=== PATIENT | female | born 1995 | race Caucasian/White ===

== ENCOUNTER 2016-11-16 18:07 | Emergency (ER) | payer OTHER ==
[~2016-11-16] VITALS: Ht 160 cm; Wt 49.0 kg
[2016-11-16 18:19] VITALS: BP 120/81; PULSE 87; RESP 15; TEMP 98.5; O2SAT 100
--- NOTE | 2016-11-16 19:51 | PD ---
HPI Chief Complaint: Respiratory Symptoms Time Seen by Provider: 19:29 Travel History International Travel<30 days: No Contact w/Intl Traveler<30days: No Traveled to known affect area: No History of Present Illness HPI 21-year-old white female presents emergency Department with complaints of pleuritic left-sided chest pain. She states that she has pain from around her left scapula which radiates through her chest up into her left clavicle. Symptoms are worse when she walks or takes a deep breath. She states that these symptoms have been present since today. She does report having cold symptoms earlier this past week. This has included slight congestion, runny nose, sneezing and cough. She denies any fever chills. No ear pain or sore throat. No shortness of breath or wheezing. No nausea vomiting. No abdominal pain or diarrhea. No urinary symptoms. She denies tobacco. She denies control. She denies any calf swelling or pain. No sedentary activities. No recent travel. PFSH Past Medical History Medical History: Denies Significant Hx Tetanus Vaccination: < 5 Years ?: Not Past Surgical History Surgical History: No Previous Surgery Social History Alcohol Use: Yes Tobacco Use: No Substance Use: No Allergies-Medications (Allergen,Severity, Reaction): Coded Allergies: Sulfa (Sulfonamide Antibiotics) (Verified Allergy, Intermediate, ITCHY, ) Reported Meds & Prescriptions Reported Meds & Active Scripts Active Diclofenac Sodium DR (Diclofenac Sodium) 75 Mg Tabdr 75 Mg PO BID Review of Systems Except as stated in HPI: all other systems reviewed are Neg Physical Exam Narrative GENERAL: Well-developed, well-nourished in no apparent distress. Nontoxic appearing. HEAD: Normocephalic, atraumatic. EYES: Pupils equal round and reactive. Extraocular motions intact. No scleral icterus. No injection or drainage. ENT: Nose clear. Throat without erythema, tonsillar hypertrophy or exudate. Uvula midline. Airway patent. NECK: Trachea midline. Supple, nontender, moves head freely. No central bony tenderness or spasm. CARDIOVASCULAR: Regular rate and rhythm without murmurs, gallops, or rubs. RESPIRATORY: Clear to auscultation. Breath sounds equal bilaterally. No wheezes , rales, or rhonchi. GASTROINTESTINAL: Abdomen soft, non-tender, nondistended. No hepato-splenomegaly , or palpable masses. No guarding. EXTREMITIES: No clubbing, cyanosis, or edema. No joint tenderness. No cords. No Homans sign. BACK: Nontender without deformity. No flank tenderness. NEUROLOGICAL: Awake, alert and oriented x 3 .Cranial nerves grossly intact. Motor and sensory grossly within normal limits. Normal speech. Data Data Last Documented VS Vital Signs Date Time Temp Pulse Resp B/P (MAP) Pulse Ox O2 Delivery O2 Flow Rate FiO2 11/16/16 18:19 98.5 87 15 120/81 (94) 100 Orders Orders D-Dimer (11/16/16 19:35) Chest, Single Ap (11/16/16 19:35) Ibuprofen (Motrin) (11/16/16 20:45) Acetamin-Hydrocod 325-5 Mg ([place] 5-325 (11/16/16 20:45) Ed Discharge Order (11/16/16 20:40) Labs Laboratory Tests Test 11/16/16 19:49 D-Dimer Quantitative (PE/DVT) LESS THAN 0.19 MG/L FEU [facility] Medical Decision Making Medical Screen Exam Complete: Yes Emergency Medical Condition: Yes Medical Record Reviewed: Yes Interpretation(s) Laboratory Tests Test 11/16/16 19:49 D-Dimer Quantitative (PE/DVT) LESS THAN 0.19 MG/L FEU Chest x-ray: Negative for pneumothorax. No acute pulmonary process. Chest wall cavity is normal. D-dimer: Negative Differential Diagnosis Differential diagnoses: URI, pleurisy, chest wall pain, PE Narrative Course Patient's given Motrin 600 mg and one Lortab 5 a grams by mouth. This is chest wall pain. Laboratory testing are negative for acute process and D. Diagnosis Primary Impression: Chest wall pain Patient Instructions: Narcotic given in the ED, General Instructions Departure Forms: Tests/Procedures, Work Release Special Instructions: No work 2 days. Additional Instructions: Rest. Deep breaths every half hour. Diclofenac. Follow-up with a medical doctor in one week. Return to the ER if any problems. Med/Other Pt SpecificInfo: Prescription(s) given Scripts Diclofenac Sodium DR (Diclofenac Sodium DR) 75 Mg Tabdr 75 MG PO BID, #20 TAB 0 Refills Prov: Sunny Michaels MD 11/16/16 Disposition: 01 DISCHARGE HOME Condition: Stable Ovi Fregoso Nov 16, 2016 19:51
--- NOTE | 2016-11-16 20:39 | RADRPT ---
EXAM DATE/TIME: 11/16/2016 19:49 [facility] COMPARISON: No previous studies available for comparison. INDICATIONS : Chest pain MEDICAL HISTORY : None. SURGICAL HISTORY : None. ENCOUNTER: Initial ACUITY: 1 day PAIN SCORE: 2/10 LOCATION: chest FINDINGS: A single view of the chest demonstrates the lungs to be symmetrically aerated without evidence of mas s, infiltrate or effusion. The cardiomediastinal contours are unremarkable. Osseous structures are intact. CONCLUSION: No acute disease. Ovi Clark MD on November 16, 2016 at 20:37 Board Certified Radiologist. This report was verified electronically.
[2016-11-16] MEDS ORDERED: DICL75TA PO (20:40)
[2016-11-16] MEDS ORDERED: ACETAMINOPHEN/HYDROcodone 325 MG/5 MG TAB PO ONE (20:45)
[2016-11-16] MEDS ORDERED: IBUPROFEN 600 MG TAB PO ONE (20:45)
== END 2016-11-16 21:02 | disposition home or self-care (01) ==
LOC: NEPD 18:07
DX: R07.89 Other chest pain (principal)
CPT/HCPCS: 71010; 85379; 99284

== ENCOUNTER 2017-08-05 08:36 | Inpatient (IN) ==
[2017-08-05] MEDS ORDERED: Oxytocin 30 Units/500ml Premix 30 UNITS/500 ML BAG IV.SIG ONE ×2 (09:09→15:52)
[2017-08-05] MEDS ORDERED: Naloxone Inj 0.4 MG/ML Vial IV.PUSH PRN (09:09)
[2017-08-05] MEDS ORDERED: Sodium Chlor 0.9% Inj 500 ML IV.SIG ONE (09:09)
[2017-08-05] MEDS ORDERED: fentaNYL Citrate Inj 100 MCG/2 ML Ampul IV.PUSH PRN ×2 (09:09)
[2017-08-05] MEDS ORDERED: Sod Chloride 0.9% Inj 1,000 ML IV.CONT SCH (09:15)
[2017-08-05] MEDS ORDERED: Citric Acid/Sodium Citrate Liq 15 ML UDC PO SCH (09:15)
--- NOTE | 2017-08-05 09:26 | ED ---
Triage/Final Diagnosis - Visit Information Date of evaluation: 08/05/17 Reason for evaluation: threatened labor Comments/Additional reasons for admission: 21-year-old primigravida who reports contractions since 2 AM. She denies leakage of fluid or bleeding. She reports good movement. - Evaluation Baseline heart rate: 140 Variability: Average (6-10) monitor accelerations: Present monitor decelerations: None Cervical dilation (cm): 3 Cervical effacement (%): 80 station: -2 Vital signs: Vital Signs - 24 hr 08/05/17 08:55 Temperature 98.2 F Pulse Rate 82 Respiratory Rate 18 Blood Pressure 116/77 Comments: Assessment: Primigravida in early labor Plan: Admit for labor management.
[2017-08-05] MEDS ORDERED: fentaNYL Citrate Inj 100 MCG/2 ML Ampul EPIDURAL ONE (09:30)
[2017-08-05] MEDS ORDERED: fentaNYL 2MCG-Bupiv 0.125% Epi 150 ML EPIDURAL ONE ×2 (09:30→09:34)
[2017-08-05 09:31] LABS: Baso % (Auto) 0.3 % (0.0-2.0); Eos % (Auto) 0.1 % (0.0-4.0); Hemoglobin 14.4 gm/dL (11.6-15.3); Lymph # (Auto) 1.7 th/mm3 (1.0-4.8); Lymph % (Auto) 10.8 % (9.0-44.0); Mean Corpuscular HGB Conc 33.5 % (32.0-36.0); Mean Corpuscular Hemoglobin 29.2 pg (27.0-34.0); Mean Corpuscular Volume 87.1 fL (80.0-100.0); Mean Platelet Volume 9.3 fL (7.0-11.0); Mono # (Auto) 1.1 th/mm3 (0.0-0.9); Mono % (Auto) 6.8 % (0.0-8.0); Neut # (Auto) 13.3 th/mm3 (1.8-7.7); Platelet Count 244 th/mm3 (150-450); Red Blood Count 4.94 mil/mm3 (4.00-5.30); Red Cell Distribution Width 14.3 % (11.6-17.2); White Blood Count 16.2 th/mm3 (4.0-11.0)
[2017-08-05] MEDS ORDERED: Bupivacaine PF 0.25% Inj 10 ML Vial ONE (09:37)
--- NOTE | 2017-08-05 09:37 | P.HPOB ---
History of Present Illness Primary Care Physician: No Primary Care Physician Contractions Chief Complaint: Contractions History of Present Illness: 21-year-old primigravida at 40 weeks gestation who reports contractions since 2 AM. She denies leakage of fluid or bleeding. She reports good movement. Weeks Gestation:: 40 - Inpatient Certification If this patient has been admitted as an Inpatient: I certify that the inpatient services were ordered in accordance with Medicare regulations governing the order. This includes certification that hospital inpatient services are reasonable and necessary and in the case of services not specified as inpatient-only under 42 CFR 419.22(n), that they are appropriately provided as inpatient services in accordance to with the 2-midnight benchmark under 43 CFR 412.3(e) Estimated Total Length of Stay (Days): 3 Plans for Post Hospital Care: Home Review of Systems All other systems reviewed negative except as stated in HPI PMFSH - Medical / Surgical Hx Neg / Unobtainable Medical Problems Denied: Yes Surgical History: No Previous Surgery - Tobacco History Tobacco Use In Past 30 Days: No Smoking Status: Never smoker Medications and Allergies Active Medications: Active Medications Citric Acid/Sodium Citrate (Sod Citrate/Citric Acid Liq) 30 ml PO [employer]WARE DES[employer] PENDING SALE TO [facility] Stop: 08/09/17 09:14 Fentanyl Citrate (Fentanyl Inj) 50 mcg IV.PUSH Q1H PRN PRN Reason: Pain Scale 3 - 5 Fentanyl Citrate (Fentanyl Inj) 100 mcg IV.PUSH Q1H PRN PRN Reason: PAIN SCALE 6 TO 10 Lactated Ringer's (Lr 1000 Ml Inj) 1,000 mls @ 125 mls/hr IV.CONT .Q8H SUSANA Lactated Ringer's (Lr 1000 Ml Inj) 3,000 mls @ 3,000 mls/hr IV.SIG UNSCH ONE Stop: 08/05/17 10:08 Sodium Chloride (Ns Inj) 1,000 mls @ 100 mls/hr IV.CONT .Q10H SUSANA Lidocaine HCl (Xylocaine 1% Inj) 0.1 ml INFILTRATN PRN PRN PRN Reason: For IV start Stop: 08/08/17 09:08 Lidocaine HCl (Xylocaine 1% Inj) 10 ml INFILTRATN PRN PRN PRN Reason: For episiotomy repair Stop: 08/07/17 09:08 Mineral Oil (Muri-Lube Oil) 10 ml TOPICAL PRN PRN PRN Reason: PRN perineal massage Naloxone HCl (Narcan Inj) 0.1 mg IV.PUSH Q2M PRN PRN Reason: for opiate reversal Allergies Allergy/AdvReac Type Severity Reaction Status Date / Time Sulfa (Sulfonamide Allergy Intermediate ITCHY Verified 11/16/16 19:52 Antibiotics) Exam Vital signs: Vital Signs 08/05/17 08:55 Temperature 98.2 F Pulse Rate 82 Respiratory Rate 18 Blood Pressure 116/77 - Constitutional moderate distress - Routine HEENT Exam ENT: Present: dentition normal - Routine Neck Exam Absent: lymphadenopathy, thyromegaly - Routine Respiratory Exam Absent: accessory muscle use, respiratory distress, wheezes - Routine Cardiovascular Exam Present: RRR. Absent: murmur, gallop, rubs - Routine Abdominal Exam Absent: distended, mass - Routine Exam External: Absent: erythema, swelling, vulvar erythema - Routine Extremities Exam Absent: edema, tenderness - Routine Back/Spine/Pelvis Exam Comments: 3 cm 80% effaced, -2 station, vertex - Routine Skin Exam Absent: erythema, rash - Routine Neurological Exam Present: alert, oriented X3, normal reflexes Results - Labs CBC & Chem 7: 08/05/17 09:00 Caprini VTE Risk Assessment Caprini VTE Risk Assessment: No/Low Risk (score <= 1) Caprini Risk Assessment Model: Point Value = 1 Point Value = 2 Point Value = 3 Point Value = 5 Age 41-60 Minor surgery BMI > 25 kg/m2 Swollen legs Varicose veins or History of unexplained or recurrent spontaneous Oral contraceptives or hormone replacement Sepsis (< 1 month) Serious lung disease, including pneumonia (< 1 month) Abnormal pulmonary function Acute myocardial infarction Congestive heart failure (< 1 month) History of inflammatory bowel disease Medical patient at bed rest Age 61-74 Arthroscopic surgery Major open surgery (> 45 min) Laparoscopic surgery (> 45 min) Malignancy Confined to bed (> 72 hours) Immobilizing plaster cast Central venous access Age >= 75 History of VTE Family history of VTE Factor V Leiden Prothrombin [id number] Lupus anticoagulant Anticardiolipin antibodies Elevated serum homocysteine Heparin-induced thrombocytopenia Other congenital or acquired thrombophilia Stroke (< 1 month) Elective arthroplasty Hip, pelvis, or leg fracture Acute spinal cord injury (< 1 month) Prophylaxis Regimen: Total Risk Factor Score Risk Level Prophylaxis Regimen 0-1 Low Early ambulation 2 Moderate Order ONE of the following: *Sequential Compression Device (SCD) *Heparin 5000 units SQ BID 3-4 Higher Order ONE of the following medications: *Heparin 5000 units SQ TID *Enoxaparin/Lovenox 40 mg SQ daily (WT < 150 kg, CrCl > 30 mL/min) *Enoxaparin/Lovenox 30 mg SQ daily (WT < 150 kg, CrCl > 10-29 mL/min) *Enoxaparin/Lovenox 30 mg SQ BID (WT < 150 kg, CrCl > 30 mL/min) AND/OR *Sequential Compression Device (SCD) 5 or more Highest Order ONE of the following medications: *Heparin 5000 units SQ TID (Preferred with Epidurals) *Enoxaparin/Lovenox 40 mg SQ daily (WT < 150 kg, CrCl > 30 mL/min) *Enoxaparin/Lovenox 30 mg SQ daily (WT < 150 kg, CrCl > 10-29 mL/min) *Enoxaparin/Lovenox 30 mg SQ BID (WT < 150 kg, CrCl > 30 mL/min) AND *Sequential Compression Device (SCD) Assessment and Plan - Diagnosis (1) Normal labor Code(s): O80 - Encounter for full-term uncomplicated delivery; Z37.9 - Outcome of delivery, unspecified Status: Acute - Plan Admit for labor management, Dr. Garza has been notified.
[2017-08-05] MEDS ORDERED: Ketorolac Inj 30 MG/ML (IVP) Vial IV.PUSH ONE (12:00)
[2017-08-05] MEDS ORDERED: Phenylephrine/NS 1000 MCG/10ML Syringe IV.PUSH ONE (12:00)
[2017-08-05 12:57] LABS: Amphetamine Urine With Conf Neg (Neg)
[2017-08-05 12:58] LABS: Benzodiazepine Urine With Conf Neg (Neg)
[2017-08-05] MEDS ORDERED: fentaNYL Citrate Inj 100 MCG/2 ML Ampul ONE (14:38)
--- NOTE | 2017-08-05 15:51 | P.OBDELI ---
Procedure Note - Pre Op Diagnosis (1) heart rate non-reassuring affecting management of mother (2) Placental abruption affecting delivery - Post Op Diagnosis (1) heart rate non-reassuring affecting management of mother (2) Placental abruption affecting delivery Performed by: Carol Ann Garza MD Procedure: Primary Low Transverse Section Indication for Delivery: Nonreassuring heart tracing, Other (concern for placental abruption) Informed Consent Obtained: For anesthesia, For procedure Confirmed Correct: Patient, Procedure, Site, Time-out taken Anesthesia: Epidural Medication Prior to Procedure: As documented in eMAR Monitoring During Procedure: Blood pressure monitoring, Pulse oximetry Urinary Catheter: Inserted using sterile technique (previously) Sterile Preparation: With 2% chlorexidine (Hibiclens) Position: Supine with wedge to right side, Supine with safety belt applied - Operative Features Skin Incision: Pfannenstiel Uterine Incision: Low transverse w/knife / scissors Membranes Ruptured: Previously (clear) Presentation: Occiput anterior, Other Status of : Viable, Cord blood, Nursery present Placenta Delivered: Intact, Abnormalities (partial abruption approx 15%), Sent to pathology Estimated blood loss (mL): 500 Procedure Tolerated: Well Maternal Condition: Stable Baby Condition: Stable - : Male Infant Female A Delivery Date: 08/05/17 Infant Delivery Time: 12:09 Weight: 3.84 kg Delivery of Infant: Assisted (vacuum applied x 2) score (1 min): 9 score (5 min): 9
[2017-08-05] MEDS ORDERED: Acetaminophen 325 MG Tablet PO PRN (15:52)
[2017-08-05 15:53] VITALS: TEMP 98
[2017-08-05] MEDS ORDERED: Oxytocin 30 Units/500ml Premix 30 UNITS/500 ML BAG ONE (17:17)
--- NOTE | 2017-08-05 19:11 | P.OP ---
Date of procedure: 08/05/17 Surgeon: Carol Ann Garza MD Operation and Findings: Procedure Note - Pre Op Diagnosis (1) heart rate non-reassuring affecting management of mother (2) Placental abruption affecting delivery - Post Op Diagnosis (1) heart rate non-reassuring affecting management of mother (2) Placental abruption affecting delivery Performed by: Carol Ann Garza MD Procedure: Primary Low Transverse Section Indication for Delivery: Nonreassuring heart tracing, Other (concern for placental abruption)Pt presented in active labor darlene q 2 minutes. She progressed to 5cm dilated 50% effaced. She had a 4 minute deceleration and was noted to have increased vaginal bleeding, approx 150-200ml in bed. She was given terbutaline and heart tones recovered. Reviewed with patient that she was remote from delivery and may be having an abruption as she had increased bleeding. Reviewed that this would compromise blood flow to the baby and could be dangerous for her and baby. Informed Consent Obtained: For anesthesia, For procedure Confirmed Correct: Patient, Procedure, Site, Time-out taken Anesthesia: Epidural Medication Prior to Procedure: As documented in eMAR Monitoring During Procedure: Blood pressure monitoring, Pulse oximetry Urinary Catheter: Inserted using sterile technique (previously) Sterile Preparation: With 2% chlorexidine (Hibiclens) Position: Supine with wedge to right side, Supine with safety belt applied - Operative Features Skin Incision: Pfannenstiel Uterine Incision: Low transverse w/knife / scissors Membranes Ruptured: Previously (clear) Presentation: Occiput anterior, Other Status of : Viable, Cord blood, Nursery present Placenta Delivered: Intact, Abnormalities (partial abruption approx 15%), Sent to pathology Estimated blood loss (mL): 500 IVF 2000ml UOP 100ml Procedure Tolerated: Well Maternal Condition: Stable Baby Condition: Stable - Infant: Male Infant Female A Infant Delivery Date: 08/05/17 Delivery Time: 12:09 Weight: 3.84 kg Delivery of Infant: Assisted (vacuum applied x 2) score (1 min): 9 score (5 min): 9 Complications: none Counts: Correct x 3 Maternal intraoperative findings: normal uterus tubes and ovaries. Placenta with evidence of partial abruption. Sent to pathology Specimens: cord blood, gas, and placenta Dispo: to pacu Procedure in detail: After review of informed consent, pt was taken to the OR where epidural anesthesia was administered w/o complication. She had gomez placed in sterile fashion previously. SCDs to bilateral extremities. Ancef 2 g IV given preincision. Abdomen and perineum were prepped and draped in sterile fashion. A Pfannenstiel skin incision was made with the scalpel and carried down to the underlying layer of fascia with the bovie. The fascia was incised in the midline; this incision was extended bilaterally bluntly. The rectus muscles were from the fascia bluntly. Peritoneum entered bluntly. Bladder blade was inserted. A bladder flap was created with Metzenbaum scissors. A low transverse uterine incision was made with the scalpel and extended bluntly. Copious amounts of amniotic fluid noted. The head was grasped, flexed and brought to the level of the hysterotomy. Fundal pressure was used to attempt delivery of the head, but was unsuccessful. PT did have pain with fundal pressure. She was given nitrous. Vacuum was placed, one pop off noted, second placement and delivery of head was successful. The rest of the body readily followed. Delayed cord clamping performed. Cord blood collected. Baby was handed off to nursery team. IV infusion of pitocin was started immediately after the delivery of the . The placenta was removed with cord traction and uterine massage. Placenta was noted to have a partial abruption, about 15% with adherent clot. The uterine cavity was cleared with moistened laparotomy sponges. The uterus was exteriorized and repaired in two layers with number 1 chromic in a running locked fashion followed by an imbricating layer. The posterior cul de sac was irrigated and suctioned. The uterus was noted to be hemostatic. It was returned to the abdomen. The peritoneum was closed with 2-0 chromic in a running fashion. Subcutaneous tissue was irrigated and hemostasis obtained w the bovie. The subcutaneous tissue was brought together with 2-0 chromic in an interrupted fashion. The skin was closed with 3-0 monocryl in a subcuticular fashion. Steristrips were placed followed by a sterile dressing. PT was sent to pacu in stable condition.
[2017-08-05] MEDS: Ibuprofen 600 MG Tablet PO PRN (20:48)
[2017-08-05] MEDS ORDERED: Oxytocin 30 Units/500ml Premix 30 UNITS/500 ML BAG IV.SIG PRN (20:53)
[2017-08-06 00:11] LABS: Bilirubin,Urine Negative (Negative); Clarity,Urine Clear (Clear); Color,Urine Straw (Yellw/Straw); Glucose,Urine (UA) Negative (Negative); Leukocyte Esterase,Urine Trace (Negative); Nitrite,Urine Negative (Negative); Specific Gravity,Urine 1.006 (1.002-1.035)
[2017-08-06] MEDS: Simethicone 80 MG Chew Tablet PO PRN ×2 (00:46→10:56)
[2017-08-06] MEDS: Ibuprofen 600 MG Tablet PO PRN ×4 (01:05→21:25)
[2017-08-06 05:48] LABS: Baso % (Auto) 0.1 % (0.0-2.0); Eos % (Auto) 0.1 % (0.0-4.0); Hematocrit 36.3 % (35.0-46.0); Lymph # (Auto) 1.3 th/mm3 (1.0-4.8); Lymph % (Auto) 9.3 % (9.0-44.0); Mean Corpuscular HGB Conc 33.1 % (32.0-36.0); Mean Corpuscular Hemoglobin 29.5 pg (27.0-34.0); Mean Platelet Volume 9.7 fL (7.0-11.0); Mono # (Auto) 1.1 th/mm3 (0.0-0.9); Mono % (Auto) 8.4 % (0.0-8.0); Neut % (Auto) 82.1 % (16.0-70.0); Platelet Count 178 th/mm3 (150-450); Red Blood Count 4.08 mil/mm3 (4.00-5.30); Red Cell Distribution Width 14.2 % (11.6-17.2); White Blood Count 13.5 th/mm3 (4.0-11.0)
--- NOTE | 2017-08-06 08:01 | P.PNOB ---
Subjective Post op day: 1 Interval history: doing well, no complaints Objective Vital Signs/I&O: Vital Signs 08/05/17 08:55 08/05/17 10:11 08/05/17 10:16 Temperature 98.2 F Pulse Rate 82 98 H 72 Respiratory Rate 18 20 Blood Pressure 116/77 100/76 107/70 08/05/17 10:25 08/05/17 10:35 08/05/17 11:00 Temperature Pulse Rate 83 79 Respiratory Rate 20 18 Blood Pressure 116/65 133/72 08/05/17 11:25 08/05/17 11:40 08/05/17 12:00 Temperature Pulse Rate 82 100 H Respiratory Rate 16 Blood Pressure 122/60 125/82 08/05/17 12:10 08/05/17 12:40 08/05/17 12:55 Temperature Pulse Rate 92 H 114 H 111 H Respiratory Rate Blood Pressure 116/66 120/63 132/77 08/05/17 13:00 08/05/17 13:10 08/05/17 13:25 Temperature 99.5 F Pulse Rate 116 H 114 H Respiratory Rate 18 Blood Pressure 116/75 128/81 08/05/17 13:40 08/05/17 13:50 08/05/17 13:52 Temperature 98.3 F Pulse Rate 107 H 108 H Respiratory Rate Blood Pressure 120/80 111/69 08/05/17 13:55 08/05/17 14:10 08/05/17 15:50 Temperature 98.0 F Pulse Rate 120 H 120 H 140 H Respiratory Rate 17 Blood Pressure 119/71 105/63 08/05/17 16:00 08/05/17 16:15 08/05/17 16:30 Temperature Pulse Rate 130 H 119 H 121 H Respiratory Rate 16 19 20 Blood Pressure 113/64 108/60 107/56 L 08/05/17 16:45 08/05/17 17:00 08/05/17 17:30 Temperature 98.7 F Pulse Rate 100 H 109 H 102 H Respiratory Rate 15 16 16 Blood Pressure 108/58 L 110/63 113/72 08/05/17 20:49 08/05/17 22:20 08/06/17 00:27 Temperature 98.6 F 98.7 F Pulse Rate 100 H 96 H Respiratory Rate 20 18 17 Blood Pressure 102/58 L 96/62 L 08/06/17 04:00 Temperature 98.7 F Pulse Rate 80 Respiratory Rate 18 Blood Pressure 96/68 L Intake & Output 08/05/17 08/06/17 08/06/17 18:59 06:59 18:59 Weight 64.982 kg Result Diagrams: 08/06/17 05:07 Objective Remarks: GENERAL: Well-nourished, well-developed patient. CARDIOVASCULAR: Regular rate and rhythm without murmurs, gallops, or rubs. RESPIRATORY: Breath sounds equal bilaterally. No accessory muscle use. ABDOMEN/GI: Abdomen soft, non-tender, bowel sounds present. Incision: dressing Clean, dry and intact. Fundus: Firm, non-tender at umbilicus. GENITOURINARY: Light to moderate bleeding. EXTREMITIES: No cyanosis or edema, non-tender, without signs of DVT. 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[employer]PERATOR SUSANA Stop: 08/09/17 09:14 Diphtheria/Pertussis/Tetanus Vacc (Boostrix Vaccine Inj) 0.5 ml IM .ONCE ONE Stop: 08/06/17 16:01 Fentanyl Citrate (Fentanyl Inj) 50 mcg IV.PUSH Q1H PRN PRN Reason: Pain Scale 3 - 5 Fentanyl Citrate (Fentanyl Inj) 100 mcg IV.PUSH Q1H PRN PRN Reason: PAIN SCALE 6 TO 10 Lactated Ringer's (Lr 1000 Ml Inj) 1,000 mls @ 100 mls/hr IV.CONT .Q10H SUSANA Stop: 08/06/17 16:52 Oxytocin (Pitocin 30 Units/Ns 500 Ml Premix) 30 units in 500 mls @ 100 mls/hr IV.SIG PRN PRN PRN Reason: Heavy bleeding Stop: 08/06/17 20:52 Lactated Ringer's (Lr 1000 Ml Inj) 1,000 mls @ 125 mls/hr IV.CONT .Q8H SUSANA Sodium Chloride (Ns Inj) 1,000 mls @ 100 mls/hr IV.CONT .Q10H SUSANA Lidocaine HCl (Xylocaine 1% Inj) 0.1 ml INFILTRATN PRN PRN PRN Reason: For IV start Stop: 08/08/17 09:08 Lidocaine HCl (Xylocaine 1% Inj) 10 ml INFILTRATN PRN PRN PRN Reason: For episiotomy repair Stop: 08/07/17 09:08 Measles/Mumps/Rubella Vaccine Live (M-M-R Ii Vaccine Inj) 0.5 ml SQ .ONCE ONE Stop: 08/06/17 16:01 Mineral Oil (Muri-Lube Oil) 10 ml TOPICAL PRN PRN PRN Reason: PRN perineal massage Naloxone HCl (Narcan Inj) 0.1 mg IV.PUSH Q2M PRN PRN Reason: for opiate reversal Ondansetron HCl (Zofran Odt) 4 mg PO Q6H PRN PRN Reason: NAUSEA Oxycodone/Acetaminophen (Percocet 5/325 Mg) 1 tab PO Q4H PRN PRN Reason: PAIN SCALE 3 TO 5 Last Admin: 08/06/17 06:10 Dose: 1 tab Oxycodone/Acetaminophen (Percocet 5/325 Mg) 2 tab PO Q4H PRN PRN Reason: PAIN SCALE 6 TO 10 Senna/Docusate Sodium (Karen-Colace) 2 tab PO Q12H PRN PRN Reason: CONSTIPATION Simethicone (Mylicon Chew) 80 mg PO QID PRN PRN Reason: FLATULENCE Last Admin: 08/06/17 00:46 Dose: 80 mg Sodium Chloride (Ns Flush) 2 ml IV.FLUSH BID SUSANA Sodium Chloride (Ns Flush) 2 ml IV.FLUSH PRN PRN PRN Reason: FLUSH AFTER USING IV ACCESS Assessment and Plan - Diagnosis (1) delivery delivered Code(s): O82 - Encounter for delivery without indication Status: Acute (2) heart rate non-reassuring affecting management of mother Code(s): O36.8390 - Maternal care for abnormalities of the heart rate or rhythm, unspecified trimester, not applicable or unspecified Status: Acute - Plan s/p primary LSTC POD#1 doing well cont. routine post op care Discharge Planning: routine - Attending Attestation pt seen by me
[2017-08-06] MEDS: Senna/Docusate Sodium 8.6/50 MG Tablet PO PRN (10:56)
[2017-08-06] MEDS ORDERED: Measles/Mumps/Rubella Vaccine Inj 0.5 ML Vial SQ ONE (16:00)
[2017-08-06] MEDS ORDERED: Diphtheria/Tetanus/Pertussis Vaccine Inj 0.5 ML Syringe IM ONE (16:00)
[2017-08-07] MEDS: Ibuprofen 600 MG Tablet PO PRN ×3 (03:17→17:00)
[2017-08-07] MEDS: Senna/Docusate Sodium 8.6/50 MG Tablet PO PRN ×2 (03:19→17:00)
--- NOTE | 2017-08-07 09:07 | P.PNOB ---
Subjective Post op day: 2 Interval history: Pt doing well, ambulating, brennen po, passing flatus, min to mod lochia Objective Vital Signs/I&O: Vital Signs 08/06/17 15:00 08/06/17 19:49 08/06/17 19:59 Temperature 98.8 F 98.4 F 98.4 F Pulse Rate 80 87 87 Respiratory Rate 16 18 18 Blood Pressure 95/60 L 97/65 L 97/65 L 08/07/17 07:56 Temperature 98.0 F Pulse Rate 81 Respiratory Rate 20 Blood Pressure 109/68 Intake & Output 08/06/17 08/07/17 08/07/17 18:59 06:59 18:59 Intake Total 0 / 0 Balance 0 / 0 Intake: Intake (Blood Product) Amt 0 / 0 Rho(D) Immune Globulin Unit 0 / 0 [id number] Result Diagrams: 08/06/17 05:07 Objective Remarks: GENERAL: Well-nourished, well-developed patient. CARDIOVASCULAR: Regular rate and rhythm without murmurs, gallops, or rubs. RESPIRATORY: Breath sounds equal bilaterally. No accessory muscle use. ABDOMEN/GI: Abdomen soft, non-tender, bowel sounds present. Incision: Clean, dry and intact.steristrip sin place Fundus: Firm, non-tender at umbilicus. GENITOURINARY: Light to moderate bleeding. EXTREMITIES: No cyanosis or edema, non-tender, without signs of DVT. Medications and IVs: Active Medications Acetaminophen (Tylenol) 650 mg PO Q6H PRN PRN Reason: PAIN SCALE 1 TO 2 Citric Acid/Sodium Citrate (Sod Citrate/Citric Acid Liq) 30 ml PO [employer] [facility] Stop: 08/09/17 09:14 Fentanyl Citrate (Fentanyl Inj) 50 mcg IV.PUSH Q1H PRN PRN Reason: Pain Scale 3 - 5 Fentanyl Citrate (Fentanyl Inj) 100 mcg IV.PUSH Q1H PRN PRN Reason: PAIN SCALE 6 TO 10 Lactated Ringer's (Lr 1000 Ml Inj) 1,000 mls @ 125 mls/hr IV.CONT .Q8H [facility] Sodium Chloride (Ns Inj) 1,000 mls @ 100 mls/hr IV.CONT .Q10H [facility] Lidocaine HCl (Xylocaine 1% Inj) 0.1 ml INFILTRATN PRN PRN PRN Reason: For IV start Stop: 08/08/17 09:08 Lidocaine HCl (Xylocaine 1% Inj) 10 ml INFILTRATN PRN PRN PRN Reason: For episiotomy repair Stop: 08/07/17 09:08 Mineral Oil (Muri-Lube Oil) 10 ml TOPICAL PRN PRN PRN Reason: PRN perineal massage Naloxone HCl (Narcan Inj) 0.1 mg IV.PUSH Q2M PRN PRN Reason: for opiate reversal Ondansetron HCl (Zofran Odt) 4 mg PO Q6H PRN PRN Reason: NAUSEA Oxycodone/Acetaminophen (Percocet 5/325 Mg) 1 tab PO Q4H PRN PRN Reason: PAIN SCALE 3 TO 5 Last Admin: 08/07/17 03:19 Dose: 1 tab Oxycodone/Acetaminophen (Percocet 5/325 Mg) 2 tab PO Q4H PRN PRN Reason: PAIN SCALE 6 TO 10 Senna/Docusate Sodium (Karen-Colace) 2 tab PO Q12H PRN PRN Reason: CONSTIPATION Last Admin: 08/07/17 03:19 Dose: 2 tab Simethicone (Mylicon Chew) 80 mg PO QID PRN PRN Reason: FLATULENCE Last Admin: 08/06/17 10:56 Dose: 80 mg Sodium Chloride (Ns Flush) 2 ml IV.FLUSH BID SUSANA Sodium Chloride (Ns Flush) 2 ml IV.FLUSH PRN PRN PRN Reason: FLUSH AFTER USING IV ACCESS Assessment and Plan - Diagnosis (1) delivery delivered Code(s): O82 - Encounter for delivery without indication Status: Acute (2) heart rate non-reassuring affecting management of mother Code(s): O36.8390 - Maternal care for abnormalities of the heart rate or rhythm, unspecified trimester, not applicable or unspecified Status: Acute - Plan s/p primary LSTC POD#2 doing well cont. routine post op care Pt looked up on [employer] and not found. Pt transferred to NICU this afternoon for obs as baby had decreased respiratory rate. Plan d/c tomorrow Discharge Planning: routine
[2017-08-07 12:40] VITALS: BP 109/68; PULSE 81; RESP 20
== END 2017-08-07 17:02 | disposition home or self-care (01) ==
LOC: HOBED 08:36 → H2E 09:09 → H1EA 17:33
PROVIDERS: ADMIT Obstetrics & Gynecology; ATTEND Obstetrics & Gynecology